=== PATIENT | male | born 1960 | race Caucasian/White ===

== ENCOUNTER 2021-10-24 11:56 | Emergency (ER) | payer OTHER ==
[~2021-10-24] VITALS: Ht 177.8 cm; Wt 92.0 kg
[2021-10-24] MEDS ORDERED: MORPHINE SULFATE 4 MG/ML INJ. IVP ONE (12:30)
[2021-10-24] MEDS ORDERED: ONDANSETRON PF 4 MG/2 ML VIAL. IVP ONE (12:30)
[2021-10-24 12:34] LABS: BASO % 1 % (0-3); EOS % 0 % (0-3); HEMOGLOBIN 14.7 g/dL (13.0-17.5); LYMPH # 0.5 x10^3/uL (1.0-4.8); LYMPH % 5 % (24-48); MEAN CORPUSCULAR HEMOGLOBIN 34 pg (25-35); MEAN CORPUSCULAR HGB CONC 35 g/dL (31-37); MEAN CORPUSCULAR VOLUME 98 fL (79-100); MONO # 0.6 x10^3/uL (0.0-1.1); MONO % 6 % (0-9); NEUT # 9.1 x10^3/uL (1.8-7.7); NEUT % 88 % (31-73); PLATELET COUNT 187 x10^3/uL (140-400); RED CELL DISTRIBUTION WIDTH 13.3 % (11.5-14.5); WHITE BLOOD COUNT 10.3 x10^3/uL (4.0-11.0)
[2021-10-24 12:36] LABS: CREATININE 0.9 mg/dL (0.7-1.3); GFR 86.4; POTASSIUM 3.5 mmol/L (3.5-5.1)
[2021-10-24 12:42] LABS: ALBUMIN 3.8 g/dL (3.4-5.0); ALBUMIN/GLOBULIN RATIO 0.9 (1.0-1.7); TOTAL BILIRUBIN 1.6 mg/dL (0.2-1.0); TOTAL PROTEIN 7.9 g/dL (6.4-8.2)
--- NOTE | 2021-10-24 13:13 | RAD ---
Exam Date: 10/24/2021 12:[address] HEAD AND C-SPINE WO Indication: Reason: fall, from standing, vomiting / Spl. Instructions: / History: . One or more of the following dose reduction techniques were utilized: *Automated exposure control (AEC) *Adjustment of mA and/or kV according to patient size *Use of iterative reconstruction technique *CT scan done according to ALARA, or ALARA/IMAGE GENTLY EXAMINATION: CT OF THE HEAD WITHOUT CONTRAST INDICATION: Trauma, head injury, headache; TECHNIQUE: Noncontrast helical axial CT images of the head were obtained. FINDINGS: The ventricles and sulci are prominent consistent with cerebral volume loss. Patchy ill-defined low attenuation areas in the subcortical and periventricular white matter bilaterally are consistent with microvascular disease. There is no evidence of acute intracranial hemorrhage, extra-axial collecti on, mass effect, midline shift, or acute territorial infarct. No lesion of the skull base or the calv arium is seen. The visualized paranasal sinuses, mastoid air cells, and orbits are normal in appearan ce. IMPRESSION: No evidence for acute intracranial abnormality. Volume loss and microvascular disease. EXAMINATION: CT OF THE CERVICAL SPINE WITHOUT CONTRAST Clinical Indication: Cervical spine pain after trauma Technique: Thin cut helical axial CT images through the cervical spine were obtained without contrast on a multi-detector CT scanner. Source data was then reconstructed into sagittal and coronal planes. Findings: Alignment is maintained without spondylolisthesis. Vertebral body heights are maintained without acute fracture. Mild multilevel degenerative changes ar e noted. No significant prevertebral soft tissue swelling is demonstrated. No severe osseous central canal stenosis is seen. Impression: No evidence of acute cervical spine fracture or subluxation. Electronically signed by: Carlos Linares MD (10/24/2021 1:10 PM) [facility]
--- NOTE | 2021-10-24 13:28 | PHYS DOC ---
Past Medical History Past Medical History: Hypertension Past Surgical History: No Surgical History Smoking Status: Never Smoker Alcohol Use: None General Adult EDM: Chief Complaint: SYNCOPE HPI: HPI: Patient is a 61 year old male with history of hypertension who presents with syncopal episode and traumatic chest pain. Patient just got out of the shower and walked over to his bathroom sink and had a syncopal episode without warning. States that he felt slightly sweaty for a moment before the episode, but had no other prodromal symptoms. Denied preceding palpitations, chest pain, shortness of breath. States that these unheralded syncope episodes have happened 4 times over the last few months. He has been scheduled for an outpatient cardiac stress test. He reportedly hit his chest and back on a sink. He is complaining of sternal pain, and right greater than left chest discomfort. Worse with deep inspirat ion. Sharp. Improved after 50 mcg of fentanyl with EMS. He is not on any blood thinning medications or antiplatelets. Review of Systems: Review of Systems: Constitutional: Denies fever or chills. [] Eyes: Denies change in visual acuity. [] HENT: Denies nasal congestion or sore throat. [] Respiratory: Denies cough or shortness of breath. [] Cardiovascular: Reports syncopal episodes denies chest pain or edema. [] GI: Reports a single episode of vomiting. Reports abdominal pain Musculoskeletal: Reports chest wall pain Integument: Denies rash. [] Neurologic: Denies headache, focal weakness or sensory changes. [] Psychiatric: Denies depression or anxiety. [] Heart Score: C/O Chest Pain: No Current Medications: Current Medications Medications (Trade) Dose Ordered Sig/Cullen Start Time Stop Time Status Last Admin Dose Admin Iohexol (Omnipaque 300 Mg/ml) 75 ml 1X ONCE 10/24/21 13:30 10/24/21 13:31 Morphine Sulfate (Morphine Sulfate) 4 mg 1X ONCE 10/24/21 12:30 10/24/21 12:31 DC 10/24/21 12:29 4 MG Ondansetron HCl (Zofran) 4 mg 1X ONCE 10/24/21 12:30 10/24/21 12:31 DC 10/24/21 12:29 4 MG Allergies: Allergies: Allergies Coded Allergies Type Severity Reaction Last Updated Verified No Known Drug Allergies 10/24/21 No Physical Exam: PE: Constitutional: Appears acutely uncomfortable, hyperventilating, moaning in pain. HENT: No evidence of intraoral or intranasal trauma. Normal alignment of jaw and teeth. Eyes: PERRLA, EOMI Neck: No tenderness to midline palpation of the cervical spine Cardiovascular:Heart rate regular rhythm, no murmur [] Lungs & Thorax: Breath sounds present auscultation bilaterally. Chest wall tenderness on the right lower ribs and right posterior ribs. Abdomen: Diffusely tender to palpation Skin: Diaphoretic, no rashes, no bruising or crepitus of the chest wall Back: + Thoracic tenderness to palpation of midline Extremities: Moving all extremities spontaneously. No deformity. Neurologic: GCS 15 alert and oriented X 3, normal motor function, normal sensory function, no focal deficits noted. [] Current Patient Data: Labs: Laboratory Tests Test 10/24/21 11:55 10/24/21 12:20 White Blood Count 10.3 x10^3/uL (4.0-11.0) Red Blood Count 4.30 x10^6/uL (4.30-5.70) Hemoglobin 14.7 g/dL (13.0-17.5) Hematocrit 42.0 % (39.0-53.0) Mean Corpuscular Volume 98 fL (79-100) Mean Corpuscular Hemoglobin 34 pg (25-35) Mean Corpuscular Hemoglobin Concent 35 g/dL (31-37) Red Cell Distribution Width 13.3 % (11.5-14.5) Platelet Count 187 x10^3/uL (140-400) Neutrophils (%) (Auto) 88 % (31-73) H Lymphocytes (%) (Auto) 5 % (24-48) L Monocytes (%) (Auto) 6 % (0-9) Eosinophils (%) (Auto) 0 % (0-3) Basophils (%) (Auto) 1 % (0-3) Neutrophils # (Auto) 9.1 x10^3/uL (1.8-7.7) H Lymphocytes # (Auto) 0.5 x10^3/uL (1.0-4.8) L Monocytes # (Auto) 0.6 x10^3/uL (0.0-1.1) Eosinophils # (Auto) 0.0 x10^3/uL (0.0-0.7) Basophils # (Auto) 0.0 x10^3/uL (0.0-0.2) Sodium Level 137 mmol/L (136-145) Potassium Level 3.5 mmol/L (3.5-5.1) Chloride Level 97 mmol/L (98-107) L Carbon Dioxide Level 24 mmol/L (21-32) Anion Gap 16 (6-14) H Blood Urea Nitrogen 10 mg/dL (8-26) Creatinine 0.9 mg/dL (0.7-1.3) Estimated GFR (Cockcroft-Gault) 86.4 BUN/Creatinine Ratio 11 (6-20) Glucose Level 130 mg/dL (70-99) H Calcium Level 9.0 mg/dL (8.5-10.1) Total Bilirubin 1.6 mg/dL (0.2-1.0) H Aspartate Amino Transferase (AST) 139 U/L (15-37) H Alanine Aminotransferase (ALT) 90 U/L (16-63) H Alkaline Phosphatase 94 U/L (46-116) Troponin I High Sensitivity 13 ng/L (4-75) Total Protein 7.9 g/dL (6.4-8.2) Albumin 3.8 g/dL (3.4-5.0) Albumin/Globulin Ratio 0.9 (1.0-1.7) L SARS-CoV-2 Antigen (Rapid) Negative (NEGATIVE) Laboratory Tests 10/24/21 11:55 Laboratory Tests 10/24/21 11:55 Vital Signs: Vital Signs Date Time Temp Pulse Resp B/P (MAP) Pulse Ox O2 Delivery O2 Flow Rate FiO2 10/24/21 12:29 Room Air 10/24/21 12:05 98.7 77 15 143/71 (95) 96 98.7 EKG: EKG: Sinus rhythm. Rate 77. Left axis deviation. QTc 480. UT 166. QRS 100. No acute ST segment elevation or depressions. No pathologic Q waves or T wave inversion. No evidence of blocks or arrhythmia. [][] Radiology/Procedures: Impression: [facility] [address] [place] [address] IMAGING REPORT Addendum PATIENT: Josh Lebron ACCOUNT: [id number] : 1960 LOCATION: ER AGE: 61 SEX: M EXAM STATUS: PRE ER ORD. PHYSICIAN: DMITRY NORRIS MD REASON: low rib pain, worse on right, diffuse abd tenderNESS;OMNI 300,75ML PROCEDURE: CT CHEST ABD PELVIS W/CONTRAST ADDENDUM ADDENDUM #1 Addendum: Addendum to the CT report for the chest abdomen and pelvis dated 10/24/2021. Additional minimally displaced fractures are present at the anterior ends of the right fifth and sixth ribs near the costochondral junctions. Electronically signed by: Yenifer Bateman MD (10/24/2021 2:01 PM) [facility] chest, abdomen pelvis with contrast: Reason for examination: Fell from standing. Lower rib pain, worse on the right. Diffuse abdominal tenderness. Helical images were obtained through the chest, abdomen and pelvis with intra venous administration of 75 cc Omnipaque 300. Reconstruction was performed in sagittal and coronal planes. Exposure: One or more of the following individualized dose reduction techniques were utilized for this examination: 1. Automated exposure control 2. Adjustment of the mA and/or kV according to patient size 3. Use of iterative reconstruction technique. No abnormality seen at the thyroid gland. The trachea and mainstem bronchi show no intraluminal lesions. No abnormality seen at the esophagus. The thoracic aorta shows no aneurysmal dilatation or dissection. The heart size is normal with no pericardial effusion. No pulmonary embolus is evident. There appears to be a small right pleural effusion layering posteriorly. There are mild infiltrates or atelectasis at the lung bases. No pneumothorax is seen. There appears to be comminuted fractures involving the posterior medial aspect of the right seventh and eighth ribs and a nondisplaced fracture of the right sixth rib. The thoracic vertebral bodies show no evidence of fracture or subluxation. The posterior elements are intact. There is some hypertrophic spurring in the mid and lower thoracic spine. In the abdomen, there is some fatty infiltration in the liver without a focal hepatic lesion seen. No abnormality seen at the gallbladder, spleen, adrenal glands or pancreas. The abdominal aorta and inferior vena cava show no acute abnormalities. The colon shows no anastomotic site in the sigmoid colon. There is no no di verticulosis, diverticulitis or colitis is evident. The small intestinal tract shows no abnormal dilatation, wall thickening or obstruction. The kidneys show no renal masses, renal calculi, hydronephrosis or evidence of obstructive uropathy. The bladder is not distended. Prostate gland contains calcifications. No abnormalities of seen at the seminal vesicles. No free fluid or free air seen in the abdomen or pelvis. No acute bony abnormality seen in the lumbar spine or pelvis. IMPRESSION (SEE ADDENDUM ABOVE): Comminuted fractures involving the posterior medial aspect of the right seventh and eighth ribs and nondisplaced fracture at the right sixth rib. Small right pleural effusion with infiltrates or atelectasis at the lung bases. Fatty liver. No acute abnormality seen in the abdomen or pelvis. Electronically signed by: Yenifer Bateman MD (10/24/2021 1:29 PM) [facility] DICTATED and SIGNED BY: YENIFER BATEMAN MD DATE: 10/24/21 [id number] [facility] [address] [place] [address] IMAGING REPORT Signed PATIENT: Josh Lebron ACCOUNT: [id number] : 1960 LOCATION: ER AGE: 61 SEX: M EXAM STATUS: PRE ER ORD. PHYSICIAN: DMITRY NORRIS MD REASON: fall, from standing, vomiting PROCEDURE: CT HEAD AND CERVICAL SPINE WO Exam Date: 10/24/2021 12:[address] HEAD AND C-SPINE WO Indication: Reason: fall, from standing, vomiting / Spl. Instructions: / History: . One or more of the following dose reduction techniques were utilized: *Automated exposure control (AEC) *Adjustment of mA and/or kV according to patient size *Use of iterative reconstruction technique *CT scan done according to ALARA, or ALARA/IMAGE GENTLY EXAMINATION: CT OF THE HEAD WITHOUT CONTRAST INDICATION: Trauma, head injury, headache; TECHNIQUE: Noncontrast helical axial CT images of the head were obtained. FINDINGS: The ventricles and sulci are prominent consistent with cerebral volume loss. Patchy ill-defined low attenuation areas in the subcortical and periventricular white matter bilaterally are consistent with microvascular disease. There is no evidence of acute intracranial hemorrhage, extra-axial collection, mass effect, midline shift, or acute territorial infarct. No lesion of the skull base or the calvarium is seen. The visualized paranasal sinuses, mastoid air cells, and orbits are normal in appearance. IMPRESSION: No evidence for acute intracranial abnormality. Volume loss and microvascular disease. EXAMINATION: CT OF THE CERVICAL SPINE WITHOUT CONTRAST Clinical Indication: Cervical spine pain after trauma Technique: Thin cut helical axial CT images through the cervical spine were obtained without contrast on a multi-detector CT scanner. Source data was then reconstructed into sagittal and coronal planes. Findings: Alignment is maintained without spondylolisthesis. Vertebral body heights are maintained without acute fracture. Mild multilevel degenerative changes are noted. No significant prevertebral soft tissue swelling is demonstrated. No severe osseous central canal stenosis is seen. Impression: No evidence of acute cervical spine fracture or subluxation. Electronically signed by: Trung Linares MD (10/24/2021 1:10 PM) [facility] DICTATED and SIGNED BY: TRUNG LINARES MD DATE: 10/24/21 [id number] 0 Course & Med Decision Making: Course & Med Decision Making Pertinent Labs and Imaging studies reviewed. (See chart for details) Patient 61-year-old male who presents with an unheralded syncopal episode concerning for cardiac cause. He appears to have injured his chest, significant chest and abdominal tenderness on exam. Patient complains of 4 similar syncopal episodes in the past several months. Vitals stable. Exam as above. E-FAST exam negative. CT head and neck negative for acute injury. CT chest shows 4 right-sided rib fractures. Ribs 7 and 8 are severely comminuted and displaced. There are anterior minimally displaced fractures of ribs 5/6. And trace hemothorax. Will obviously require admission for pain control as well as syncopal work up. Will be transferred to [facility] S[facility]. Accepting physician Dr. Andre. [id number] Nathan Disclaimer: Nathan Disclaimer: This electronic medical record was generated, in whole or in part, using a voice recognition dictation system. Departure Departure Impression: Primary Impression: Multiple fractures of ribs of right side Additional Impressions: Syncope Hemothorax Disposition: 02 SHORT TERM HOSPITAL Condition: GUARDED DMITRY NORRIS MD Oct 24, 2021 13:28
[2021-10-24] MEDS ORDERED: IOHEXOL 300 MG/ML 100ML VIAL. IV ONE (13:30)
--- NOTE | 2021-10-24 13:32 | RAD ---
CT chest, abdomen pelvis with contrast: Reason for examination: Fell from standing. Lower rib pain, worse on the right. Diffuse abdominal ten derness. Helical images were obtained through the chest, abdomen and pelvis with intravenous administration of 75 cc Omnipaque 300. Reconstruction was performed in sagittal and coronal planes. Exposure: One or more of the following individualized dose reduction techniques were utilized for thi s examination: 1. Automated exposure control 2. Adjustment of the mA and/or kV according to patient size 3. Use of iterative reconstruction technique. No abnormality seen at the thyroid gland. The trachea and mainstem bronchi show no intraluminal lesions. No abnormality seen at the esophagus. The thoracic aorta shows no aneurysmal dilatation or dissection. The heart size is normal with no per icardial effusion. No pulmonary embolus is evident. There appears to be a small right pleural effusion layering posteriorly. There are mild infiltrates o r atelectasis at the lung bases. No pneumothorax is seen. There appears to be comminuted fractures involving the posterior medial aspect of the right seventh a nd eighth ribs and a nondisplaced fracture of the right sixth rib. The thoracic vertebral bodies show no evidence of fracture or subluxation. The posterior elements are intact. There is some hypertrophi c spurring in the mid and lower thoracic spine. In the abdomen, there is some fatty infiltration in the liver without a focal hepatic lesion seen. No abnormality seen at the gallbladder, spleen, adrenal glands or pancreas. The abdominal aorta and inferior vena cava show no acute abnormalities. The colon shows no anastomotic site in the sigmoid colon. There is no no diverticulosis, diverticulit is or colitis is evident. The small intestinal tract shows no abnormal dilatation, wall thickening or obstruction. The kidneys show no renal masses, renal calculi, hydronephrosis or evidence of obstructive uropathy. The bladder is not distended. Prostate gland contains calcifications. No abnormalities of seen at the seminal vesicles. No free fluid or free air seen in the abdomen or pelvis. No acute bony abnormality seen in the lumbar spine or pelvis. IMPRESSION: Comminuted fractures involving the posterior medial aspect of the right seventh and eighth ribs and n ondisplaced fracture at the right sixth rib. Small right pleural effusion with infiltrates or atelectasis at the lung bases. Fatty liver. No acute abnormality seen in the abdomen or pelvis. Electronically signed by: Ginny Bateman MD (10/24/2021 1:29 PM) [facility]
[2021-10-24] MEDS ORDERED: HYDROmorphone 2 MG/ML INJ. IVP ONE (13:45)
[2021-10-24 17:38] VITALS: BP 128/87
--- NOTE | 2021-10-25 00:02 | EKG ---
[facility] [address] [place] [address] Test Date: 2021-10-24 Test Time: 12:13:57 Pat Name: Josh Lebron Department: Room: Gender: M Field Clerk: : 1960 Requested By: DMITRY NORRIS Order Number: [id number] Reading MD: Measurements Intervals [place] Rate: 77 P: 37 NE: 166 QRS: -19 QRSD: 100 T: -3 QT: 422 QTc: 480 Interpretive Statements SINUS RHYTHM LEFTWARD AXIS PROLONGED QT NO SPECIFIC ECG ABNORMALITIES RI6.02 No previous ECG available for comparison
== END 2021-10-24 17:38 | disposition short-term general hospital (02) ==
LOC: ER 11:56
DX: S22.41XA Multiple fractures of ribs, right side, initial encounter for closed fracture (principal); R55 Syncope and collapse; R07.89 Other chest pain; J94.2 Hemothorax; I10 Essential (primary) hypertension; M54.2 Cervicalgia; W18.39XA Other fall on same level, initial encounter; Y93.89 Activity, other specified; Y92.89 Other specified places as the place of occurrence of the external cause; Y99.8 Other external cause status
CPT/HCPCS: 36415; 70450; 71260; 72125; 74177; 80053; 84484; 85025; 86850; 86900; 86901; 87426; 93005; 96374; 96375; 99285; J1170; J2270; J2405; U0003; U0005